=== PATIENT | female | born 1950 | race Caucasian/White ===

== ENCOUNTER → 2018-04-05 | Outpatient (CLI) | payer MEDICARE ==
--- NOTE | 2018-04-05 16:45 | PCVCIMAG ---
APPROVED REPORT Study performed: 04/05/2018 15:13:51 Exam: Stress Echocardiogram Indication: Dyspnea , Hypertension, Hyperlipidemia, carotid stenosis Patient Location: Echo lab Stress Nurse: Marcela Juarez RN Status: routine Ht: 5 ft 4 in HR: 86 bpm BP: 162/98 mmHg Rhythm: NSR Procedure The patient underwent an Exercise Stress Test using the Harsh Protocol. Blood pressure, heart rate, and EKG were monitored. An Echocardiogram was performed by graphic arts technician in four stages in quad fashion. At peak stress, four selected images were obtained and placed side by side with resting images for comparison. Stress Test Details Stress Test: Exercise stress testing was performed using a Harsh protocol. HR Resting HR: 86 bpmMax Heart Rate (APMHR): 154 bpm Max HR Achieved: 155 bpmTarget HR (85% APMHR): 130 bpm % of APMHR: 100 Recovery HR: 100 bpm HR response to stress: Normal HR response to stress BP Resting BP: 162/98 mmHg Max BP: 204/104 mmHg Recovery BP: 186/104 mmHg BP response to stress: Abnormal hypertensive response to stress. ECG Resting ECG: Sinus Rhythm Stress ECG: Sinus Rhythm ST Change: Normal Maximum ST Deviation: 0 mm Arrhythmia: None Recovery ECG: Sinus Rhythm Recovery ST Change: Normal Recovery ST Deviation: 0 mm Recovery Arrhythmia: None Clinical Reason for Termination: Maximal effort Stress Symptoms: chest tightness 1 out of 10 that did not progress with increased exertion Exercise duration: 8 min 36 sec Highest Stage Achieved: Stage 3: 3.4 mph at 14% grade. Exercise capacity: 10.4 METs Overall Exercise Capacity for Age: Average Scale: Sedentary Angina Score: Non-Limiting Stress ECG Conclusion ECG: Non-ischemic Clinical: Non-ischemic Urbano Treadmill Score is 4.0 which is Moderate risk. Pre-Stress Echo The resting Echocardiogram showed normal left ventricular contractility with an estimated Ejection Fraction of about >55%. Normal wall motion in all segments on baseline images. Post-Stress Echo The stress Echocardiogram showed normal left ventricular contractility with an estimated Ejection Fraction of about 65%. Normal augmentation of wall motion in all segments on post stress images. Clinical No clinical or ECG evidence for ischemia. Conclusion Clinical Response: Non-ischemic Exercise Capacity: Average Stress ECG Response: Non-ischemic Stress Echo Images: Non-ischemic The left ventricle is normal in size and wall thickness in both the rest and stress images. Normal stress echocardiogram with maximal exercise stress. Other Information Study Quality: Adequate <Conclusion> The left ventricle is normal in size and wall thickness in both the rest and stress images. Normal stress echocardiogram with maximal exercise stress.
== END | disposition home or self-care (01) ==
LOC: PCVCIMAG 14:33
PROVIDERS: ATTEND Internal Medicine
DX: I65.23 Occlusion and stenosis of bilateral carotid arteries (principal); I10 Essential (primary) hypertension; R06.09 Other forms of dyspnea; E78.5 Hyperlipidemia, unspecified; R09.89 Other specified symptoms and signs involving the circulatory and respiratory systems
CPT/HCPCS: 93325; 93351; 93880